=== PATIENT | female | born 1960 | race Caucasian/White ===

== ENCOUNTER 2023-03-06 16:03 | Emergency (ER) | payer MEDICAID ==
[~2023-03-06] VITALS: Ht 149.9 cm; Wt 57.5 kg
[2023-03-06 16:44] VITALS: BP 129/81
[2023-03-06] MEDS ORDERED: ACETAMINOPHEN 325MG TABLET PO ONE (17:00)
[2023-03-06] MEDS: ACETAMINOPHEN 325MG TABLET PO NR (17:00)
[2023-03-06 17:11] LABS: BASOPHILS % 0.9 % (0.0-2.0); EOSINOPHILS % 2.1 % (0.0-5.0); HEMATOCRIT. 38.3 % (36.0-48.0); HEMOGLOBIN. 13.4 g/dL (12.0-16.0); LYMPHOCYTES % 39.3 % (20.0-50.0); MEAN CORPUSCULAR HEMOGLOBIN 31.6 pg (28.0-32.0); MEAN CORPUSCULAR VOLUME 90.5 fL (81.0-99.0); MEAN PLATELET VOLUME 7.1 fl (7.4-10.4); MONOCYTES % 7.2 % (2.0-8.0); NEUTROPHILS % 50.5 % (40.0-76.0); PLATELET 282 x1000/uL (130-400); RED BLOOD CELL COUNT 4.23 mill/uL (4.2-5.4); RED CELL DISTRIBUTION WIDTH 13.5 % (11.6-14.6)
[2023-03-06 17:18] LABS: CHLORIDE 106 mEq/L (98-107)
[2023-03-06 21:37] LABS: CLARITY URINE CLEAR (CLEAR); COLOR URINE YELLOW (YELLOW); KETONES URINE NEGATIVE (NEGATIVE); LEUKOCYTE ESTERASE URINE TRACE (NEGATIVE); NITRITE URINE NEGATIVE (NEGATIVE); OCCULT BLOOD URINE NEGATIVE (NEGATIVE); PROTEIN URINE NEGATIVE (NEGATIVE); SPECIFIC GRAVITY URINE 1.005 (1.005-1.030); UROBILINOGEN URINE 0.2 E.U./dL (0.2-1.0)
[2023-03-06] MEDS ORDERED: SODIUM CHLORIDE 0.9% 1,000 ML IV ONE (23:45)
[2023-03-07] MEDS: ACETAMINOPHEN 325MG TABLET PO NR (00:35)
[2023-03-07] MEDS ORDERED: IOHEXOL-300 100 ML BOTTLE ONE (01:34)
== END 2023-03-07 05:25 | disposition home or self-care (01) ==
LOC: ER 16:03
DX: K92.2 Gastrointestinal hemorrhage, unspecified (principal); M54.50 Low back pain, unspecified; E11.9 Type 2 diabetes mellitus without complications; I10 Essential (primary) hypertension
CPT/HCPCS: 36415; 74177; 80053; 81003; 81025; 85025; 96360; 99285; J7030; Q9967; Z7610

== ENCOUNTER 2024-01-16 21:43 | Emergency (ER) | payer MEDICAID, OTHER ==
[~2024-01-16] VITALS: Ht 152.4 cm; Wt 54.0 kg
[2024-01-16 21:45] VITALS: BP 171/100; PULSE 76; RESP 18; O2SAT 100
[2024-01-16 22:16] LABS: CLARITY URINE CLEAR (CLEAR); COLOR URINE YELLOW (YELLOW); GLUCOSE URINE NEGATIVE (NEGATIVE); KETONES URINE NEGATIVE (NEGATIVE); LEUKOCYTE ESTERASE URINE NEGATIVE (NEGATIVE); NITRITE URINE NEGATIVE (NEGATIVE); OCCULT BLOOD URINE NEGATIVE (NEGATIVE); PROTEIN URINE NEGATIVE (NEGATIVE); SPECIFIC GRAVITY URINE 1.005 (1.005-1.030); UROBILINOGEN URINE 0.2 E.U./dL (0.2-1.0)
[2024-01-16 22:52] LABS: BASOPHILS % 1.1 % (0.0-2.0); EOSINOPHILS % 1.7 % (0.0-5.0); HEMATOCRIT. 37.2 % (36.0-48.0); HEMOGLOBIN. 12.7 g/dL (12.0-16.0); MEAN CORPUSCULAR HEMOGLOBIN 31.2 pg (28.0-32.0); MEAN CORPUSCULAR HGB CONC 34.1 g/dL (31.0-37.0); MEAN CORPUSCULAR VOLUME 91.6 fL (81.0-99.0); MEAN PLATELET VOLUME 6.9 fl (7.4-10.4); NEUTROPHILS % 50.2 % (40.0-76.0); PLATELET 291 x1000/uL (130-400); RED BLOOD CELL COUNT 4.06 mill/uL (4.2-5.4); RED CELL DISTRIBUTION WIDTH 13.1 % (11.6-14.6); WHITE BLOOD COUNT 6.9 x1000/uL (4.5-11.0)
[2024-01-16 23:12] LABS: ALANINE AMINOTRANSFERASE 18 IU/L (10-49); ALBUMIN 4.5 g/dL (3.2-4.8); ASPARTATE AMINOTRANSFERASE 24 IU/L (<34); BILIRUBIN TOTAL 0.5 mg/dL (0.1-1.0); CALCIUM 8.5 mg/dL (8.7-10.4); CARBON DIOXIDE 25 mEq/L (21-32); CHLORIDE 95 mEq/L (98-107); CREATININE 0.5 mg/dL (0.6-1.0); GLUCOSE 117 mg/dL (70-105); PROTEIN TOTAL 6.6 g/dL (6.0-8.3); SODIUM 126 mEq/L (136-145); UREA NITROGEN BLOOD 11 mg/dL (9-23)
[2024-01-17 01:01] VITALS: TEMP 98.2
[2024-01-17] MEDS: ACETAMINOPHEN 325MG TABLET PO ONE (01:01)
== END 2024-01-17 00:45 | disposition home or self-care (01) ==
LOC: ER 21:43
DX: E87.1 Hypo-osmolality and hyponatremia (principal); I10 Essential (primary) hypertension; R51.9 Headache, unspecified; R30.0 Dysuria; E11.9 Type 2 diabetes mellitus without complications; Z85.9 Personal history of malignant neoplasm, unspecified
CPT/HCPCS: 36415; 80053; 81003; 85025; 99283

== ENCOUNTER 2024-03-21 20:47 | Emergency (ER) | payer MEDICAID ==
[~2024-03-21] VITALS: Ht 149.9 cm; Wt 55.0 kg
[2024-03-21 21:13] VITALS: BP 160/94; PULSE 72; RESP 18; TEMP 98.6; O2SAT 100
== END 2024-03-21 23:12 | disposition left against medical advice (07) ==
LOC: ER 20:47
DX: I10 Essential (primary) hypertension (principal); Z53.21 Procedure and treatment not carried out due to patient leaving prior to being seen by health care provider